=== PATIENT | male | born 1945 | race Caucasian/White ===

== ENCOUNTER 2018-09-22 12:21 | Inpatient (IN) | payer OTHER, MEDICARE ==
[~2018-09-22] VITALS: Ht 188 cm; Wt 86.6 kg
[2018-09-22] MEDS ORDERED: BLOOD PRESSURE PO (12:35)
[2018-09-22] MEDS ORDERED: CHOLESTEROL PO (12:35)
[2018-09-22 17:26] VITALS: BP 148/77; PULSE 82; TEMP 97.8
--- NOTE | 2018-09-22 17:26 | NUR ---
PATIENT REQUESTED PAIN MEDICATION UPON ARRIVAL AND SETTELING INTO ROOM 324. PATIENT GIVEN PRN DOSE OF IV DILAUDID. WILL CONTINUE TO MONITOR.
--- NOTE | 2018-09-22 17:27 | NUR ---
PATIENT ARRIVED TO ROOM 324 VIA CART FROM ED. PATIENT ORIENTED AND SETTELED INTO ROOM.
--- NOTE | 2018-09-22 17:57 | NUR ---
PATIENT IS RATING HIS PAIN A 10/10 ON A 0-10 SCALE. PATIENT GIVEN 1 TABLET OF PRN PERCOCET. LIDOCAINE PATCH APPLIED TO LEFT SCAPULA. PATIENT DENIES ANY OTHER NEEDS AT THIS TIME.
[2018-09-22] MEDS ORDERED: LIPITOR 80MG80 MG PO (18:08)
[2018-09-22] MEDS ORDERED: PRINIVIL40 MG PO (18:09)
[2018-09-22] MEDS ORDERED: VITAMIN D31000 I1 PO (18:11)
[2018-09-22] MEDS ORDERED: ZYLOPRIM 300MG300 MG PO (18:12)
--- NOTE | 2018-09-22 18:30 | NUR ---
PATIENT ASSESSMENT COMPLETE. SEE ASSESSMENT B. PATIENT IS A&O. VSS. CAP REFILL TO LUE <3 SECONDS. CMS INTACT. LUE TO SPLINT AND ELEVATED ON TWO PILLOWS. LEFT CHEST TUBE TO WATERSEAL WITH LOW CONTINUOUS SUCTION. SCD'S TO BLE. IV FLUIDS INFUSING TO RIGHT FOREARM IV VIA PUMP. DINNER TRAY ORDERED. DAUGHTER PRESENT AT THE BEDSIDE. CALL LIGHT WITHIN REACH. PATIENT DENIES ANY NEEDS AT THIS TIME.
--- NOTE | 2018-09-22 19:17 | NUR ---
REPORT GIVEN TO MEÑO BOWSER.
--- NOTE | 2018-09-22 19:30 | NUR ---
Received report from MEÑO Goss. Patient is sitting up in bed visiting with family at bedside. Reports pain to left arm and requested a pain shot for this pain. Chest tube is to water seal with 20 cm to LIS with scant amount of red drainage noted in tubbing. Denies any other concerns or needs, call light is within reach.
--- NOTE | 2018-09-22 19:45 | NUR ---
Dr. Odell rounded on patient and gave orders after talking with Dr. Connor for patient to be on a general diet as no plans for surgery at this time. Assessment completed. Patient is A&O x 4. VSS, on 3 liters of supplemental O2 via nasal cannula. Neurochecks completed. IV Dilaudid and Perocet for pain control of left arm. Renzo wrap dressing/splint to left arm. Patient is able to move his fingers, hand structural manager are weakers on left side. Left CT remains to waterseal with LIS. BLE scds on. Denies any nausea at this time. IVF infusing per orders. Family remains at bedside. Denies any concerns or needs, call light remains within reach.
[2018-09-22 21:05] VITALS: BP 138/78; PULSE 85; TEMP 98.6
--- NOTE | 2018-09-22 21:15 | NUR ---
Patient c/o feeling "a little nauseous on and off" prn IV Zofran given. Educated patient on pain medication orders and how often he is able to have pain medication. Call light remains within reach.
--- NOTE | 2018-09-22 23:06 | NUR ---
Patient had a small emesis of brown liquid, reported that it came on suddenly.
[2018-09-23] VITALS (7 sets, daily range): BP systolic 128–152; BP diastolic 72–82; PULSE 63–84; TEMP 97.9–98.8
--- NOTE | 2018-09-23 04:39 | NUR ---
Patient has rested for short periods of time through the night. VSS, remains on 2 liters of supplemental O2 via nasal cannula. Dilaudid IV and Percocet for pain control. Left arm rena wrap/splint remains CDI. Left chest tube remains to waterseal with LIS. Denies feeling nauseous or having any more emesis. Bed remains in a low position with call light in reach.
--- NOTE | 2018-09-23 06:42 | NUR ---
Patient had a large emesis after being repositioned in bed for radiology to take a chest x-ray. Reports he hadn't been feeling nauseous but once moved it hit him suddenly, prn IV Zofran given.
--- NOTE | 2018-09-23 07:10 | NUR ---
Reported on to Primary Nurse Ana Paula. Checked on pt. Assisted to reposition for comfort. IV in RFA shows no redness, swelling, and no reported discomfort at IV site. LR running at 75 ml/hr. Pt reports vomiting and restlessness overnight. Rx odansetron given at 0642. Reports minimal relief. O2 via nasal cannula running at 2 L/min. Pt left in quiet environment to rest.
[2018-09-23 07:26] LABS: BASO % 0.1 % (0.0-2.0); GRAN # 6.4 (1.4-6.5); GRAN % 84.6 % (42.2-75.2); HEMOGLOBIN 11.7 g/dl (13.5-18.0); LYMPH # 0.7 (1.2-3.4); LYMPH % 9.1 % (20.0-51.0); MEAN CELL VOLUME 96 fl (80.0-100.0); MEAN CORPUSCULAR HEMOGLOBIN 32 pg (27.0-31.0); MEAN CORPUSCULAR HGB CONC 33 g/dl (33.0-37.0); MEAN PLATELET VOLUME 11.3 fl (7.4-10.4); MONO # 0.4 (0.1-0.6); MONO % 5.9 % (1.7-9.3); PLATELET COUNT 128 K/mm3 (130-400); RED BLOOD COUNT 3.67 M/mm3 (4.20-5.60); REDCELL DISTRIBUTION WIDTH-CV 13.1 % (11.5-14.5)
[2018-09-23 07:36] LABS: HEMATOCRIT 35.1 % (42.0-52.0)
[2018-09-23 07:45] LABS: CALCIUM 8.6 mg/dL (8.4-10.2); CREATININE, serum 0.44 mg/dL (0.66-1.25); PHOSPHOROUS 3.6 mg/dL (2.5-4.5); POTASSIUM 3.7 mmol/L (3.4-5.0)
--- NOTE | 2018-09-23 08:00 | NUR ---
PATIENT RESTING IN BED THIS MORNING. PATIENT IS A&O. VSS. BOWEL SOUNDS HYPOACTIVE ALL FOUR QUADRANTS. PATIENT REPORTS COUPLE EPISODES OF EMESIS THIS MORNING. PATIENT REFUSED BREAKFAST DUE TO NAUSEA AND VOMITING. SHALLOW BREATHING NOTED. PATIENT STATES THAT HE FEELS SHORT OF BREATH. 02 AT 2L VIA NASAL CANNULA. LEFT LOWER LUNG LOBE DIMINISHED UPON AUSCULATATION, ALL OTHER LUNG COSTELLO CLEAR UPON AUSCULATATION. LEFT CHEST TUBE TO CONTINUOUS LOW SUCTION AND WATERSEAL AT 20 CM. SCANT AMOUNT OF BLOODY DRAINAGE PRESENT IN WATERSEAL CONTAINER. CHEST TUBE SITE DRESSED WITH GAUZE & TEGADERM. SMALL AMOUNT OF SHADING PRESENT ON GAUZE. SPLINT WITH JAYNE WRAP TO LEFT UPPER EXTREMETY. CAP REFILL <3 SECONDS. CMS INTACT. LUE ELEVATED ON PILLOWS. POSITIVE PEDAL PULSES EQUAL BILATERALLY. SCD'S TO BLE. IV FLUIDS INFUSING TO RIGHT FOREARM IV VIA PUMP. CALL LIGHT WITHIN REACH. PATIENT DENIES ANY OTHER NEEDS AT THIS TIME.
--- NOTE | 2018-09-23 08:30 | NUR ---
Assessment complete. Pt reports pain 05/14. Nurse Ana Paula notified and IV pain med planned for ealiest available time. Unable to palpate L radial pulse d/t splint and renzo bandage on arm. Left lower lung sounds diminshed. Chest tube in place. Dressing CDI. Suction running. Minimal red output in drain. Abdomen round and firm with diminished bowel sounds in all 4 quadrants. Pt still reports NV and vomited 100 mL of light brown liquid. States no relief upon vomiting. Still passing flatus but has not had bowel movement in "couple days." States that he "feels overall crummy." Renzo bandage and splint on left arm are CDI. Pt fingers warm and are able to move upon request.
--- NOTE | 2018-09-23 09:22 | NUR ---
JENNIFER and SW student met with the patient to discuss discharge plan. 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 His , Shell, lives in [place]. He reports independence with ADLs and has a cane. He states if he were to need a walker, that there are some available at his local [facility]. The patient receives primary care at the [facility] in [place] and he also receives his medications there. He reports no difficulties obtaining his meds. The patient does not have advanced directives, but he was interested in obtaining a DPOA-HC. JENNIFER provided. The patient was down as self pay. Financial Counselor, Polly, was consulted and she obtained the patient's insurance information. The patient plans to return home upon discharge. JENNIFER to continue to follow.
--- NOTE | 2018-09-23 09:30 | NUR ---
Pt offered clean gown and opportunity to shower or have bed bath. Pt states "I'm alright." Informed that help is available when he is ready. Left resting in bed with call light in reach.
--- NOTE | 2018-09-23 10:30 | NUR ---
CHEST TUBE DISCONNECTED FROM SUCTION PER DR. NASH.
--- NOTE | 2018-09-23 10:37 | NUR ---
PATIENT COMPLAINING OF NAUSEA. PATIENT GIVEN PRN DOSE OF IV PHENERGAN. WILL CONTINUE TO MONITOR.
--- NOTE | 2018-09-23 10:42 | NUR ---
Initial visit; Patient thanked Corporate Associate Attorney for introducing herself and offering God's blessings.
--- NOTE | 2018-09-23 11:20 | NUR ---
VSS. Reports discomfort but declines repositioning. Pain med will be given when available per Nurse Goss. Reported off to Nurse Goss. Pt left resting with bed in lowest position and call light in reach.
--- NOTE | 2018-09-23 13:28 | NUR ---
PATIENT RATING PAIN AN 8/10 ON A 0-10 SCALE. PATIENT GIVEN TWO TABLETS OF PRN PERCOCET. PATIENT REPORTS THAT HE NO LONGER FEELS NAUSEATED AND DENIES ADDITIONAL EPISODES OF EMESIS.
--- NOTE | 2018-09-23 19:17 | NUR ---
REPORT GIVEN TO MEÑO BOWSER.
--- NOTE | 2018-09-23 19:50 | NUR ---
Assessment completed. Patient is A&O x 4. VSS, on room air at this time. Tele maintained. Pain controlled with Percocet. Left upper chest tube to waterseal, scant output noted in tubing. Left arm rena wrap splint is CDI. Tolerating diet with no c/o nausea. Up to the bedside commode as patient though he might have to have a bowel movement this evening, reported it was just gas. Voiding with no difficulities. IVF infusing per orders. Patient is NPO after breakfast in the morning. Denies any concerns or needs at this time. Bed is in a low position with call light in reach.
--- NOTE | 2018-09-23 20:42 | NUR ---
TOOK PT OFF O2, SAT WAS 92 ON RA. NO DISTRESS WAS NOTED WILL NOTIFY NURSE. CANNULA WAS LEFT IN ROOM IN CASE 02 WILL BE NEEDED IN THE NIGHT
[2018-09-24] VITALS (11 sets, daily range): BP systolic 118–170; BP diastolic 66–93; PULSE 81–97; TEMP 98–98.6
--- NOTE | 2018-09-24 05:26 | NUR ---
Patient has rested well through the night. VSS, currently back on 1 liter of supplemental O2 via nasal cannula to keep O2 saturation above 90% Pain controlled with prn Percocet. Left chest tube remains to waterseal. Denies any shortness of breathe. Renzo wrap/splint remains CDI to left arm. Patient will be NPO after breakfast this morning. IVF infusing per orders. Denies any concerns or needs at this time, call light within reach.
[2018-09-24 06:21] LABS: BASO % 0.2 % (0.0-2.0); EOS % 0.4 % (0-4.0); GRAN # 4.4 (1.4-6.5); GRAN % 77.1 % (42.2-75.2); HEMOGLOBIN 10.7 g/dl (13.5-18.0); LYMPH # 0.9 (1.2-3.4); LYMPH % 16.3 % (20.0-51.0); MEAN CELL VOLUME 98 fl (80.0-100.0); MEAN CORPUSCULAR HEMOGLOBIN 32 pg (27.0-31.0); MEAN CORPUSCULAR HGB CONC 33 g/dl (33.0-37.0); MEAN PLATELET VOLUME 11.7 fl (7.4-10.4); MONO # 0.3 (0.1-0.6); MONO % 5.8 % (1.7-9.3); PLATELET COUNT 112 K/mm3 (130-400); RED BLOOD COUNT 3.37 M/mm3 (4.20-5.60)
[2018-09-24 06:25] LABS: HEMATOCRIT 32.9 % (42.0-52.0)
[2018-09-24 06:26] LABS: CALCIUM 8.4 mg/dL (8.4-10.2); CREATININE, serum 0.55 mg/dL (0.66-1.25); PHOSPHOROUS 4.1 mg/dL (2.5-4.5); POTASSIUM 3.5 mmol/L (3.4-5.0)
--- NOTE | 2018-09-24 07:09 | NUR ---
Report given to MEÑO George.
--- NOTE | 2018-09-24 07:25 | NUR ---
Report from Kina WILDER.
--- NOTE | 2018-09-24 10:05 | NUR ---
PT RESTING IN BED RATING PAIN OF 3/10. PO PAIN MEDS EFFECTIVE IN CONTROLLING PAIN. CHEST TUBE PATENT TO H20 SEAL.IV TO PUMP PER ORDERS. PLAN ON OR LATER TODAY.
--- NOTE | 2018-09-24 10:18 | NUR ---
SW collaborated with the patient's nurse on ordering PT/OT. The patient's nurse to order PT/OT. SW to continue to follow.
[2018-09-24] MEDS ORDERED: PERCOCET 325 MG1 TA2 PO (11:37)
[2018-09-24] MEDS ORDERED: LIDODERM 5% PATC1 EA TP (11:38)
[2018-09-24] MEDS ORDERED: COLACE 100100 MG/CAP PO (11:38)
--- NOTE | 2018-09-24 16:30 | NUR ---
PT IN OR
--- NOTE | 2018-09-24 17:22 | NUR ---
PT TO ROOM 324 PER BED WITH REPORT FROM SAM WILDER PACU @2150. PT IS A/O X3, LEFT ARM IN SLING AND PLASTER CAST. DR. HUDSON OK TO RELEASE PT. DR NASH NOTIFIED AND WILL PUT IN DISCHARGE ORDERS.
--- NOTE | 2018-09-24 18:30 | NUR ---
PATIENT EATING AND DRINKING.
--- NOTE | 2018-09-24 20:00 | NUR ---
Assessment completed. Patient is A&O x 4. VSS, currently on 2 liters of supplemental O2 via nasal cannula. Percocet controlling c/o left arm pain. Left chest previous chest tube site with gauze and tegaderm is CDI. Patient denies any shortness of breathe. Lungs CTA. Renzo wrap/splint to left arm with sling maintained to arm. Patient educated on orders to keep HOB up at all times and position to allow gravity to reduce fracture, verbalized understanding. Radial pulses intact. Tolerating diet with no c/o nausea. Voiding with no difficulities. Ambulated in the hallway this evening with staff, patient had a steady gait stated he felt a "little dizzy" when up and it subsided once back in bed. BLE scds on while in bed. Denies any concerns or needs at this time, call light is within reach.
[2018-09-25 00:54] VITALS: BP 138/83; PULSE 93; TEMP 98.6
[2018-09-25 03:39] VITALS: BP 139/81; PULSE 89; TEMP 98.6
--- NOTE | 2018-09-25 04:53 | NUR ---
Patient has rested well through the night, reports having weird dreams that he'll wake up from. VSS, remains on 2 liters of supplemental O2 via nasal cannula. Pain controlled with prn Percocet. Gauze/tegaderm dressing to left upper chest remains CDI. Continues to deny any shortness of breath. Renzo wrap splint to left arm with sling maintained. Denies any concerns or needs, call light is within reach.
[2018-09-25 08:00] VITALS: BP 148/78; PULSE 76; TEMP 98
--- NOTE | 2018-09-25 10:16 | NUR ---
PATIENT ASSESSMENT COMPLETED. PATIENT HAD A OXYCODONE 5MG TABLET THIS MORNING. PATIENTS PAIN LEVEL DECREASED. PATIENT DENIES ANY PAIN AT THIS TIME. PATIENT AMBULATED IN TRAVIS. VSS AND CALL LIGHT WITHIN REACH. PATIENT IS TO DISCHARGE HOME. PATIENT HAS NO OTHER COMPLAINTS AT THIS TIME
--- NOTE | 2018-09-25 12:29 | NUR ---
AGREE WITH STUDENT'S ASSESSMENTS. DISCHARGE INSTRUCTIONS REVIEWED PT TAKEN TO FRONT VIA WC.
--- NOTE | 2018-09-25 13:54 | NUR ---
OT ordered and they recommended that the patient is safe to return home. The patient discharged back home today, 09/25. No additional needs at this time.
== END 2018-09-25 10:45 | disposition home or self-care (01) | DRG 200 ==
LOC: COL.ER 12:21 → SURG 15:29
PROVIDERS: Surgery; ADMIT Orthopaedic Surgery
PROC: 0W9B30Z Drainage of Left Pleural Cavity with Drainage Device, Percutaneous Approach (ICD-10-PCS; principal; 2018-09-22)
PROC: 0PSGXZZ Reposition Left Humeral Shaft, External Approach (ICD-10-PCS; 2018-09-24)
DX: S27.0XXA Traumatic pneumothorax, initial encounter (principal); S42.302A Unspecified fracture of shaft of humerus, left arm, initial encounter for closed fracture; S22.32XA Fracture of one rib, left side, initial encounter for closed fracture; I10 Essential (primary) hypertension; J44.9 Chronic obstructive pulmonary disease, unspecified; E78.5 Hyperlipidemia, unspecified; W00.0XXA Fall on same level due to ice and snow, initial encounter
CPT/HCPCS: A9284; J1170; J2405; J2550; J2704; J3010; J7120; Q4050